=== PATIENT | female | born 1975 | race American Indian/Alaskan Native ===

== ENCOUNTER 2016-08-08 22:15 | Emergency (ER) | payer OTHER ==
[2016-08-08 23:12] LABS: Hematocrit 35.6 % (30.3-42.9); Hemoglobin 11.4 gm/dl (10.1-14.3); Mean Corpuscular HGB Conc 32 % (30-34); Mean Corpuscular Volume 77 fl (79-97); Platelet Count 313 K/mm3 (140-440); Red Blood Count 4.63 M/mm3 (3.65-5.03); White Blood Count 8.2 K/mm3 (4.5-11.0)
[2016-08-08 23:13] LABS: Mean Corpuscular Hemoglobin 25 pg (28-32); Red Cell Distribution Width 21.8 % (13.2-15.2)
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
[2016-08-09 01:02] LABS: Anion Gap 18 mmol/L; Blood Urea Nitrogen 15 mg/dL (7-17); Calcium 9.2 mg/dL (8.4-10.2); Carbon Dioxide 24 mmol/L (22-30); Chloride 102.6 mmol/L (98-107); Glucose 118 mg/dL (65-100); Potassium 3.7 mmol/L (3.6-5.0); Sodium 141 mmol/L (137-145)
[2016-08-09 01:55] LABS: Anisocytosis 1+; Basophils % (Manual) 0 % (0.0-1.8); Blastocytes % (Manual) 0 %; Diff Status Complete; Hypochromasia 1+; Platelet Estimate Consistent w Auto; Schistocytes Rare
[2016-08-09] MEDS ORDERED: MOTRIN PO ONE (02:30)
[2016-08-09] MEDS ORDERED: MOTRIN ONE (02:31)
[2016-08-09] MEDS ORDERED: NACL 0.9% 1000 ML 1,000 ML IV ONE (03:28)
[2016-08-09] MEDS ORDERED: MORPHINE IV ONE ×2 (03:28→05:08)
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
[2016-08-09] MEDS ORDERED: ZOFRAN ONE (03:59)
[2016-08-09] MEDS ORDERED: ZOFRAN IV ONE (04:23)
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
[2016-08-09 06:22] VITALS: BP 118/76
== END 2016-08-09 06:00 | disposition home or self-care (01) ==
LOC: ED 22:15
DX: S52.92XA Unspecified fracture of left forearm, initial encounter for closed fracture (principal); R07.89 Other chest pain; M79.672 Pain in left foot; M79.642 Pain in left hand; V49.49XA Driver injured in collision with other motor vehicles in traffic accident, initial encounter; Y93.89 Activity, other specified; Y99.8 Other external cause status; Y92.488 Other paved roadways as the place of occurrence of the external cause; D21.9 Benign neoplasm of connective and other soft tissue, unspecified
CPT/HCPCS: 29105; 36415; 70450; 70486; 71020; 72125; 73090; 73130; 73590; 73610; 73630; 80048; 84484; 84703; 85007; 85025; 93005; 93010; 96361; 96374; 96375; 96376; 99285; J2270; J2405; J7030